=== PATIENT | male | born 1985 | race Caucasian/White ===

== ENCOUNTER 2024-01-16 09:34 | Emergency (ER) | payer OTHER ==
[2024-01-16 09:40] VITALS: BP 140/86; PULSE 63; RESP 18; TEMP 98.1; BMI 26.4
[2024-01-16 11:02] LABS: PH,URINE 5.5 (5.0-8.0); URINE APPEARANCE CLEAR; URINE BILIRUBIN NEGATIVE (NEGATIVE); URINE COLOR YELLOW; URINE GLUCOSE (UA) NEGATIVE (NEGATIVE); URINE KETONE NEGATIVE (NEGATIVE); URINE LEUK ESTERASE NEGATIVE (NEGATIVE); URINE NITRITE NEGATIVE (NEGATIVE); URINE PROTEIN NEGATIVE (NEGATIVE); URINE UROBILINOGEN 0.2 mg/dL (0.2-1.0)
[2024-01-16] MEDS: SODIUM CHLORIDE 0.9% 500 ML INFUS.BAG IV ONE (11:16)
[2024-01-16 11:22] LABS: BASO % 1.1 % (0-2.0); EOS % 1.9 % (0-4.5); HEMATOCRIT 41.7 % (35.4-49); HEMOGLOBIN 14.5 GM/dL (11.7-16.9); LYMPH % 36.6 % (8-40); MCH 29.9 pg (25.7-33.7); MCHC 34.7 g/dl (32.0-35.9); MEAN PLT VOLUME 8.1 fl (7.5-11.1); MONO % 7.2 % (3.8-10.2); NEUT % 53.2 % (42.8-82.8); PLATELET COUNT 287 10^3/uL (134-434); RBC 4.85 M/mm3 (4.00-5.60); RDW 13.1 % (11.9-15.9); WHITE BLOOD COUNT 7.7 K/mm3 (4.0-10.0)
[2024-01-16 11:25] LABS: CALCIUM 9.5 mg/dL (8.5-10.1)
[2024-01-16 11:26] LABS: ALBUMIN 4.2 g/dl (3.4-5.0)
[2024-01-16 11:29] LABS: CREATININE 0.7 mg/dL (0.55-1.3)
[2024-01-16 11:30] LABS: TOT PROT 8.1 g/dl (6.4-8.2)
[2024-01-16 11:59] LABS: POTASSIUM 4.7 mmol/L (3.5-5.1)
[2024-01-16 12:00] LABS: CALCIUM 9.5 mg/dL (8.5-10.1)
[2024-01-16 12:01] LABS: ALBUMIN 4.2 g/dl (3.4-5.0); BLOOD UREA NITROGEN 16.5 mg/dL (7-18)
[2024-01-16 12:04] LABS: CREATININE 0.8 mg/dL (0.55-1.3)
[2024-01-16 12:06] LABS: BILIRUBIN,TOTAL 0.8 mg/dL (0.2-1); TOT PROT 7.9 g/dl (6.4-8.2)
== END 2024-01-16 14:25 | disposition home or self-care (01) ==
LOC: JER 09:34
DX: R10.9 Unspecified abdominal pain (principal)
CPT/HCPCS: 36415; 74176-TC; 80053; 81003; 85025; 87086; 99284-25